=== PATIENT | male | born 1975 | race Caucasian/White ===

== ENCOUNTER 2018-09-19 15:23 | Emergency (ER) | payer OTHER ==
[2018-09-19] MEDS ORDERED: Adacel (T-DAP) 0.5 ML SYRINGE ONE (17:10)
--- NOTE | 2018-09-19 19:23 | CT ---
CT HEAD WITHOUT CONTRAST: 09/19/18 Multiple axial tomograms obtained through the head without IV enhancement. INDICATIONS: Head injury. Ventricles have normal size and position. There is no evidence of intracranial mass or hemorrhage. N o edema or infarct. The sinuses and mastoids are clear. IMPRESSION: No acute abnormality identified. POS: [facility]
== END 2018-09-19 18:30 | disposition home or self-care (01) ==
LOC: ERS 15:23
DX: S01.01XA Laceration without foreign body of scalp, initial encounter (principal); S80.212A Abrasion, left knee, initial encounter; W17.89XA Other fall from one level to another, initial encounter
CPT/HCPCS: 12001; 70450; 90471; 90715